=== PATIENT | female | born 1995 | race Caucasian/White ===

== ENCOUNTER 2021-01-23 19:42 | Emergency (ER) | payer MEDICAID ==
[~2021-01-23] VITALS: Ht 157.5 cm; Wt 63.6 kg
[2021-01-23 19:49] VITALS: BP 105/72; PULSE 82; TEMP 97.4
== END 2021-01-26 18:43 | disposition left against medical advice (07) ==
LOC: COL.ER 19:42
DX: O26.892 Other specified pregnancy related conditions, second trimester (principal); M54.9 Dorsalgia, unspecified; Z3A.17 17 weeks gestation of pregnancy

== ENCOUNTER 2023-05-18 15:00 | Outpatient (RCR) | payer MEDICAID | END 2023-05-31 | disposition home or self-care (01) | LOC: WSPT | DX: M46.1 Sacroiliitis, not elsewhere classified (principal); M41.86 Other forms of scoliosis, lumbar region ==